=== PATIENT | male | born 1940 | race Caucasian/White ===

== ENCOUNTER 2017-11-24 08:43 | Observation (INO) | payer MEDICARE ==
[2017-11-21 10:09] VITALS: BP 119/79
[2017-11-21 10:54] LABS: ANION GAP 8 mmol/L (5-15); CALCIUM 9.1 mg/dL (8.5-10.1); CHLORIDE 101 mmol/L (98-107); CREATININE 1.04 mg/dL (0.7-1.3)
[2017-11-21 10:59] LABS: BASOPHILS # (AUTO) 0.02 x10^3/uL (0-0.1); BASOPHILS % (AUTO) 0 % (0-1); EOSINOPHILS # (AUTO) 0.12 x10^3/uL (0-0.4); EOSINOPHILS % (AUTO) 2 % (1-7); LYMPHOCYTES # (AUTO) 1.48 x10^3/uL (1-3.4); LYMPHOCYTES % (AUTO) 18 % (22-44); MD NO; MEAN CORPUSCULAR HEMOGLOBIN 31.7 pg (27.5-34.5); MEAN CORPUSCULAR HGB CONC 34.1 g/dL (33.2-36.2); MEAN CORPUSCULAR VOLUME 93.1 fL (81-97); MEAN PLATELET VOLUME 7.6 fL (7.4-10.4); MONOCYTES # (AUTO) 0.52 x10^3/uL (0.2-0.8); MONOCYTES % (AUTO) 6 % (2-9); NEUTROPHILS # (AUTO) 6.02 x10^3/uL (1.8-6.8); NEUTROPHILS % (AUTO) 74 % (42-75); PLATELET COUNT 228 x10^3/uL (130-400); RED BLOOD COUNT 5.51 x10^6/uL (4.38-5.82); RED CELL DISTRIBUTION WIDTH 12.8 % (9.4-14.8)
[~2017-11-24] VITALS: Ht 176.5 cm; Wt 69.0 kg
[~2017-11-24 08:43] MED LIST: ACET-1600 PO; ANAS1TAB PO; ASPI-496 PO; ASPI-621 PO; BRIM5DRO2 EACHEYE; BRIM5DRO3 EACHEYE; CELE200C PO; CHOL40002 PO; FINA5TAB4 PO; GABA-826 PO; GLUC1500 PO; HGH; HYDR-3245 PO; LATA2.5D3 EACHEYE; LEVO500C3 PO; LUTE1CAP3 PO; LYSI500T25 PO; MAGN71.5 PO; MELA2.5T PO; MULT1TAB60 PO; NIAC500T4 PO; OMEG1CAP6 PO; PRAS25CA6 PO; RESERVATROL PO; SIMV40TA3 PO; TAMS0.4C2 PO; TEST100V2 INJ; TIZA4TAB PO; TRAM50TA2 PO; UBID60CA2 PO; VIT1TABL32 PO
[2017-11-24] MEDS ORDERED: ACET-1600 PO (09:10)
[2017-11-24] MEDS ORDERED: NITROGLYCERIN 5 MG/ML, 10ML ONE (09:51)
[2017-11-24] MEDS ORDERED: HEPARIN 1,000 UNITS/ML, 10ML ONE (09:51)
[2017-11-24] MEDS ORDERED: BIVALIRUDIN 250 MG ONE (09:51)
[2017-11-24] MEDS ORDERED: MIDAZOLAM 1 MG/ML, 5ML ONE (09:51)
[2017-11-24] MEDS ORDERED: VERAPAMIL 2.5 MG/ML, 2ML ONE (09:51)
[2017-11-24] MEDS ORDERED: FENTANYL PF 100 MCG/2ML ONE ×2 (09:51→11:29)
[2017-11-24] MEDS ORDERED: LIDOCAINE 2%, 20ML ONE (09:51)
[2017-11-24] MEDS ORDERED: PRASUGREL 10 MG TABLET ONE (09:52)
[2017-11-24] MEDS ORDERED: TICAGRELOR 90 MG TABLET ONE (11:38)
[2017-11-24] MEDS ORDERED: BIVALIRUDIN 250 MG in DEXTROSE 5% 50 ML IV SCH (11:41)
[2017-11-24] MEDS: SODIUM CHLORIDE 0.9% 1,000 ML IV SCH ×2 (11:41→19:41)
[2017-11-24] MEDS ORDERED: ZOLPIDEM 5MG TABLET PO PRN (12:00)
[2017-11-24] MEDS ORDERED: ACETAMINOPHEN 500 MG TABLET PO PRN (12:00)
[2017-11-24] MEDS ORDERED: TEMPLATE NON-FORMULARY MED. (Glucosamine Hcl** 1,500 MG) PO SCH (12:00)
[2017-11-24] MEDS ORDERED: TESTOSTERONE CYPIONATE 100 MG INJ SCH (12:00)
[2017-11-24 13:53] VITALS: BP 115/68
[2017-11-24 20:30] VITALS: BP 104/73
[2017-11-24] MEDS ORDERED: MELATONIN 5 MG TABLET PO SCH (21:00)
[2017-11-24] MEDS ORDERED: TEMPLATE NON-FORMULARY MED. (Prasterone (Dhea) (Dhea 25) 25 MG) PO SCH (21:00)
[2017-11-24] MEDS: BRIMONIDINE TARTRATE EACHEYE SCH (21:00)
[2017-11-24] MEDS: MULTIVITAMIN 1 TABLET PO SCH (21:00)
[2017-11-24] MEDS ORDERED: UBIDECARENONE 60 MG PO SCH (21:00)
[2017-11-24] MEDS ORDERED: LATANOPROST OPHTH 0.005%, 2.5ML EACHEYE SCH (21:00)
[2017-11-24] MEDS ORDERED: SIMVASTATIN 40 MG TABLET PO SCH (21:00)
[2017-11-24] MEDS: OMEGA-3/FISH OIL CAPSULE PO SCH (21:00)
[2017-11-24] MEDS ORDERED: LYSINE HCL 500 MG PO SCH (21:00)
[2017-11-24] MEDS: TIMOLOL EACHEYE SCH (21:00)
[2017-11-24] MEDS: TICAGRELOR 90 MG TABLET PO SCH (22:57)
[2017-11-25] MEDS: SODIUM CHLORIDE 0.9% 1,000 ML IV SCH (03:41)
[2017-11-25 04:07] VITALS: BP 117/72
[2017-11-25 07:45] VITALS: BP 127/77
[2017-11-25] MEDS ORDERED: TICA90TA PO (08:28)
[2017-11-25] MEDS: MULTIVITAMIN 1 TABLET PO SCH (09:00)
[2017-11-25] MEDS ORDERED: FINASTERIDE 5 MG TABLET PO SCH (09:00)
[2017-11-25] MEDS ORDERED: LUTEIN PO SCH (09:00)
[2017-11-25] MEDS: BRIMONIDINE TARTRATE EACHEYE SCH (09:00)
[2017-11-25] MEDS ORDERED: TAMSULOSIN 0.4 MG CAP.ER.24H PO SCH (09:00)
[2017-11-25] MEDS ORDERED: NIACIN 500 MG TABLET.ER PO SCH (09:00)
[2017-11-25] MEDS ORDERED: MAGNESIUM CHLORIDE 64 MG TABLET.DR PO SCH (09:00)
[2017-11-25] MEDS ORDERED: CHOLECALCIFEROL 1,000 UNIT TABLET PO SCH (09:00)
[2017-11-25] MEDS: TIMOLOL EACHEYE SCH (09:00)
[2017-11-25] MEDS ORDERED: [UNRECOGNIZED DRUG - OTHER] PO SCH (09:00)
[2017-11-25] MEDS: OMEGA-3/FISH OIL CAPSULE PO SCH (09:00)
[2017-11-25] MEDS ORDERED: TEMPLATE NON-FORMULARY MED. (Vit A,C & E/Lutein/Minerals** (Ocuvite Tablet**) 1 TAB) PO SCH (09:00)
[2017-11-25] MEDS ORDERED: ZEAXANTHIN PO SCH (09:00)
[2017-11-25] MEDS ORDERED: ASPIRIN 81 MG TABLET EC PO SCH (09:00)
[2017-11-25] MEDS: TICAGRELOR 90 MG TABLET PO SCH (09:01)
== END 2017-11-25 10:41 | disposition home or self-care (01) ==
LOC: CACL 08:43 → 5SO 11:41 → DCLOUNGE 11-25 10:27
PROVIDERS: ADMIT Internal Medicine Cardiovascular Disease; ATTEND Internal Medicine Cardiovascular Disease
DX: I25.110 Atherosclerotic heart disease of native coronary artery with unstable angina pectoris (principal); I24.0 Acute coronary thrombosis not resulting in myocardial infarction
CPT/HCPCS: 36415; 80048; 85025; 92920; 93005; 93458; 99156; 99157; C1725; C1769; C1874; C1887; C1894; C9600; C9601; G0378; J0583; J1644; J2250; J3010; J3490; Q9967; 92928